=== PATIENT | male | born 1965 | race Caucasian/White ===

== ENCOUNTER 2017-10-24 06:50 | Inpatient (IN) | payer OTHER ==
[2017-10-23 08:39] VITALS: BMI 36.6
[~2017-10-24 06:50] MED LIST: ceFAZolin SODIUM 1 GM VIAL IVPB ONE
[2017-10-24 07:30] LABS: INR 1.04 (0.82-1.09); PROTHROMBIN TIME (PATIENT) 11.8 SEC (9.7-13.0)
[2017-10-24] MEDS ORDERED: MIDAZOLAM HCL 2 MG/2 ML SINGLE DOSE VIAL ONE ×2 (08:25)
[2017-10-24] MEDS ORDERED: DEXAMETHASONE SOD PHOSPHATE/PF 10 MG/ML SDV ONE (08:26)
[2017-10-24] MEDS ORDERED: DEXAMETHASONE SOD PHOSPHATE 4 MG/1 ML VIAL ONE (08:32)
[2017-10-24] MEDS ORDERED: LIDOCAINE HCL/PF 2% SDV 5ML VIAL ONE (08:32)
[2017-10-24] MEDS ORDERED: PROPOFOL 20 ML ONE (08:32)
[2017-10-24] MEDS ORDERED: ceFAZolin SODIUM 1 GM VIAL ONE (08:32)
--- NOTE | 2017-10-24 08:55 | HP ---
Satellite [facility] - Chief Complaint Chief Complaint: right shoulder pain History of Present Illness: right shoulder pain, unstable distal clavicle, possible labral tear History Source: Patient Limitations to Obtaining History: No Limitations - Past Medical History Allergies/Adverse Reactions: Allergies Allergy/AdvReac Type Severity Reaction Status Date / Time No Known Drug Allergies Allergy Verified 10/24/17 07:51 - Current Medications Current Medications: Home Medications Medication Instructions Recorded Aspirin Coated [Ecotrin -] 81 mg PO DAILY 10/23/17 Atorvastatin Ca [Lipitor] 20 mg PO DAILY 10/23/17 Clopidogrel Bisulfate [Plavix] 75 mg PO DAILY 10/23/17 HYDROmorphone [Dilaudid -] 4 mg PO Q4H 10/23/17 Metoprolol Succinate 100 mg PO DAILY 10/23/17 Montelukast Sodium [Singulair] 10 mg PO DAILY 10/23/17 Omeprazole 20 mg PO DAILY 10/23/17 Oxycodone HCl/Acetaminophen 1 each PO PRN PRN 10/23/17 [Percocet 10-325 mg Tablet] Ramipril [Altace] 5 mg PO DAILY 10/23/17 Sertraline HCl [Zoloft -] 50 mg PO BID 10/23/17 Warfarin Sodium [Coumadin] 5 mg PO DAILY 10/23/17 clonazePAM [Klonopin -] 0.5 mg PO DAILY 10/23/17 Satellite Physical Exam - Physical Examination Vital Signs: Vital Signs Period Temp Pulse Resp BP Sys/Torres Pulse Ox Last 24 Hr 98.8 F 69 20 114/69 96 General Appearance: Well Nourished ENT: Clear Lung: Clear to auscultation Heart: Regular rate & rhythm Breasts: Soft Abdomen: Soft Extremities: No edema Satellite Impression/Plan - Impression/Plan Impression: right shoulder pain, unstable distal clavicle Operative Procedure: right shoulder arthroscopy, open coracoclavicular ligament reconstruction Date to be Performed: 10/24/17
[2017-10-24] MEDS ORDERED: ceFAZolin SODIUM 1 GM VIAL IVPB ONE (09:30)
[2017-10-24] MEDS ORDERED: ePHEDrine SULFATE 50 MG/1 ML AMPULE ONE ×2 (10:00→10:19)
--- NOTE | 2017-10-24 12:00 | OP ---
Operative Note - Note: Operative Date: 10/24/17 Pre-Operative Diagnosis: right shoulder impingement, distal clavicle instability Operation: right shoulder arthroscopy, subacromial decompression, open CC ( coracoclavicular ligament) reconstruction Implants: Athrex Fiber Tape x 2 , Dog Bone endobutton, cadaveric anterior tibialis graft, fiber wire x 2 Surgeon: Albert Vee Recreational Resort Manager: Reyes Forman Andrew) Anesthesiologist/TEXTILE BAG SEWER: Catrachita Ruelas Anesthesia: General, Local Specimens Removed: shavings Estimated Blood Loss (mls): 75 Drains, Volume Out (mls): 0 Blood Volume Replaced (mls): 0 Fluid Volume Replaced (mls): 1,200 Operative Report Dictated: Yes
--- NOTE | 2017-10-24 14:49 | OP ---
DATE OF OPERATION: 10/24/2017 PREOPERATIVE DIAGNOSES: Right shoulder distal clavicle instability/acromioclavicular joint separation, recurrent subacromial impingement, possible labral tear. POSTOPERATIVE DIAGNOSES: Right shoulder distal clavicle instability/acromioclavicular joint separation, recurrent subacromial impingement. PROCEDURES PERFORMED: Right shoulder arthroscopy, subacromial decompression, and open coracoclavicular ligament reconstruction. SURGEON: Albert Vee MD BOX CAR LOADER: Reyes Forman MD SECOND BOX CAR LOADER: IESHA Bravo ANESTHESIOLOGIST: ANESTHESIA: Right interscalene block. LMA anesthesia. DRAINS: None. BLOOD LOSS: Minimal; 75 mL. BLOOD GIVEN: None. FLUID REPLACEMENT: 700 mL. SPECIMEN: Arthroscopic shavings. COMPLICATIONS: None. INDICATIONS: This patient is a 52-year-old male with preoperative diagnosis of right shoulder pain and unstable distal clavicle and subacromial impingement. After understanding the potential risks, complications, alternatives and benefits of surgery versus nonsurgical treatment, the patient elected to undergo this procedure. PROCEDURE: The patient was brought to the operating room. Peripheral IV placed. IV sedation given. IV Ancef 2 g was given. A right interscalene block was performed. LMA anesthesia was induced. He was placed into the beach chair position with ample padding throughout including a trailhead construction worker. The right upper extremity was then prepped and draped in sterile fashion. Bony landmarks were marked out with a marking pen. A posterior portal was established. The arthroscope was introduced into the joint and a diagnostic glenohumeral arthroscopy was performed. The patient was seen to have a frayed anterior labrum from the 10 o'clock to the 3 o'clock position. Otherwise, the glenoid and the humerus looked good. The undersurface of the rotator cuff was also frayed. The biceps tendon itself looked good. Therefore, an anterior portal was established with a spinal needle. The Green cannula was introduced into the joint and using the shaver, I was able to shave away the frayed portions of the labrum and the undersurface of the rotator cuff. This revealed that the undersurface rotator cuff tear was extremely small, perhaps 5% of the thickness of the rotator cuff. The labrum was then extensively probed. It was seen to look quite good. There was some fraying in the 12 o'clock to 2 o'clock position, but it was mild. All of the excess saline was removed. The instrumentation was removed from the glenohumeral joint and reintroduced into the subacromial space. Under direct visualization, a lateral portal was established with a spinal needle. The patient had a tremendous amount of inflammatory bursitis. The Green cannula was introduced into the subacromial space. Using the ArthroCare wand and straight shaver, extensive debridement/subacromial soft tissue bursectomy and decompression was performed. This revealed a [id number] subacromial bony spur. Photographs were taken. The bone spur was taken down with a 5.5-mm oval bur and fine tuned in reverse and then with the shaver. Photographs were taken after, as well. The top surface of the rotator cuff was directly visualized and seen to be intact. I could see the AC joint and the distal clavicle instability as it pushed down the clavicle under direct visualization from the subacromial space. Next, we abandoned the arthroscopic approach and turned to the open approach for the open coracoclavicular ligament reconstruction portion of the procedure. An incision was marked out and made with a number-15 scalpel blade from the superior portion of the distal clavicle about 3 cm in from the tip down to the coracoid. Subcutaneous hemostasis was achieved with the Bovie cautery. Dissection done with the Metzenbaum scissors through the superficial fascia. A Weitlaner and then a Idalia retractor was placed into the wound. Next, I used the Bovie cautery to cut through the trapezial fascia on the anterior edge of the clavicle and did a subperiosteal dissection with the periosteal elevator and the Bovie cautery, exposing the entire distal clavicle, but leaving the posterior attachment of the trapezial fascia intact. I then took off the deltopectoral fascia anteriorly, exposing the anterior aspect of the distal clavicle. Next, 0 Vicryl marking and retracting sutures were placed into the fascia both superior and inferior to the clavicle. I then used a rongeur to remove soft tissue debris/scar tissue in the acromioclavicular joint. I was then able to mobilize the distal clavicle and push it down into a more reduced position. Then, I exposed the coracoid, being very careful of all inferior neurovascular structures. I was able to get around the coracoid and then using the Arthrex coracoid suture passer, I was able to thread a nitinol wire underneath the coracoid, leaving the conjoined tendons intact. On the back table, we had prepared a tibialis anterior cadaveric graft in a whipstitch fashion on both ends. We then passed two ends of FiberTape plus the two tails on one side of the tendon graft underneath the coracoid via the nitinol wire and brought it up to the clavicle. These were retracted for protection. Next, we used the Arthrex 3.0-mm drill and drilled down from the top portion of the clavicle. Great care was taken to protect all soft tissue structures. Next, using the nitinol wire again, we brought the four tails of the FiberTape up through the hole in the clavicle, fed it through an Arthrex Dog Bone EndoButton. Pushed the EndoButton down to the top of the clavicle. Reduced the clavicle with direct force. Got the slack out of the FiberTape and tied over the top of the Dog Bone, first [id number], then [id number], and then one insurance stitch to each other, and the tails were cut. This held the distal clavicle in a reduced position. Next, I was able to feed the coracoid suture passer around the clavicle and I fed the more medial aspect of the tibialis anterior graft around the posterior aspect of the clavicle and the more lateral aspect of the cadaveric graft was also more anterior and lateral on the clavicle. I was then able to tie it to itself on the top portion of the clavicle and use multiple FiberWire sutures to suture this in place. This CC reconstruction cadaveric graft also held down the distal clavicle and was over the Dog Bone EndoButton. The excess tails were cut. Excess cadaveric graft was cut. I was able to then close the fascia with 0 Vicryl suture over the construct and the distal clavicle. I then closed the more superficial fascia above this layer with a 0 Vicryl suture and final skin reapproximation was done with a running subcuticular 3-0 V-Loc suture. The arthroscopy portals were closed with 3-0 nylon. The incision was covered with SwiftSet skin glue. All three areas were covered with Aquacel dressing and a shoulder immobilizer was placed. Total operative time was about 1.5 hours. There were no complications during the case. The patient tolerated the procedure quite well. The patient was extubated and bought to the ambulatory recovery room in stable condition. Moody CASON/[id number]
[2017-10-24] MEDS ORDERED: NITROGLYCERIN SUBLINGUAL 1/150 0.4 MG TAB SL ONE ×2 (15:00→15:10)
[2017-10-24] MEDS ORDERED: ONDANSETRON 4 MG/2 ML VIAL IVPUSH PRN (15:02)
[2017-10-24] MEDS ORDERED: NITROGLYCERIN SUBLINGUAL 1/150 0.4 MG TAB SL PRN (15:04)
[2017-10-24] MEDS ORDERED: ASPIRIN 81 MG CHEWABLE TABLETS PO ONE ×2 (15:04→15:10)
--- NOTE | 2017-10-24 16:10 | CON.CARD ---
Consult Consult Specialty:: Cardiology Reason for Consultation:: chest pain radiating to the l arm post op - History of Present Illness History of Present Illness: 52 yo man who developed CP after right shoulder surgery. 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 Medical records are not available. ASHD - mi/"dammaged heart" multiple stents Lupus anticoagulant hlp htn patient stopped his coumadin and DAPT 10 days - History Source History Provided By: Patient, Medical Record - Past Medical History Cardio/Vascular: Yes: CAD, HTN, Hyperlipdemia - Alcohol/Substance Use Hx Alcohol Use: No - Smoking History Smoking history: Current every day smoker Have you smoked in the past 12 months: Yes Aproximately how many cigarettes per day: 20 Home Medications - Allergies Allergies/Adverse Reactions: Allergies Allergy/AdvReac Type Severity Reaction Status Date / Time No Known Drug Allergies Allergy Verified 10/24/17 07:51 - Home Medications Home Medications: Ambulatory Orders Aspirin Coated [Ecotrin -] 81 mg PO DAILY 10/23/17 Atorvastatin Ca [Lipitor] 20 mg PO DAILY 10/23/17 Clopidogrel Bisulfate [Plavix] 75 mg PO DAILY 10/23/17 HYDROmorphone [Dilaudid -] 4 mg PO Q4H 10/23/17 Metoprolol Succinate 100 mg PO DAILY 10/23/17 Montelukast Sodium [Singulair] 10 mg PO DAILY 10/23/17 Omeprazole 20 mg PO DAILY 10/23/17 Oxycodone HCl/Acetaminophen [Percocet 10-325 mg Tablet] 1 each PO PRN PRN Ramipril [Altace] 5 mg PO DAILY 10/23/17 Sertraline HCl [Zoloft -] 50 mg PO BID 10/23/17 Warfarin Sodium [Coumadin] 5 mg PO DAILY 10/23/17 clonazePAM [Klonopin -] 0.5 mg PO DAILY 10/23/17 Review of Systems - Review of Systems Constitutional: reports: No Symptoms Eyes: reports: No Symptoms HENT: reports: No Symptoms Neck: reports: No Symptoms Cardiovascular: reports: Chest Pain Gastrointestinal: reports: No Symptoms Genitourinary: reports: No Symptoms Breasts: reports: No Symptoms Reported Musculoskeletal: reports: No Symptoms Integumentary: reports: No Symptoms Neurological: reports: No Symptoms Endocrine: reports: No Symptoms Hematology/Lymphatic: reports: No Symptoms Psychiatric: reports: No Symptoms Vital Signs: Vital Signs Temperature 98.3 F 10/24/17 13:40 Pulse Rate 82 10/24/17 15:45 Respiratory Rate 16 10/24/17 15:45 Blood Pressure 108/60 10/24/17 15:45 O2 Sat by Pulse Oximetry (%) 95 10/24/17 15:45 Constitutional: Yes: Well Nourished, No Distress, Calm Eyes: Yes: WNL, Conjunctiva Clear, EOM Intact HENT: Yes: WNL, Atraumatic, Normocephalic Neck: Yes: WNL, Supple, Trachea Midline Respiratory: Yes: WNL, Regular, CTA Bilaterally Gastrointestinal: Yes: WNL, Normal Bowel Sounds Renal/: Yes: WNL Cardiovascular: Yes: WNL, Regular Rate and Rhythm Musculoskeletal: Yes: WNL Extremities: Yes: WNL Integumentary: Yes: WNL Neurological: Yes: WNL, Alert, Oriented ...Motor Strength: WNL Psychiatric: Yes: WNL, Alert, Oriented - Other Data Labs, Other Data: INR, PTT INR 1.04 (0.82-1.09) 10/24/17 06:58 Laboratory Tests 10/24/17 06:58 PT with INR 11.80 INR 1.04 Imaging - Results EKG: Image Reviewed (sr old ant septal mi rep abn) Assessment/Plan angina s/p r shoulder surgery ASHD - mi/"damaged heart" multiple stents Lupus anticoagulant hlp htn Plan telemetry r/o mi- serial CE/ekg's echo old records from patient private cardiologists restart DAPT MEÑO IV or SQ unfractionated heparine MEÑO when cleared from ortho point of view restart all other meds including metoprolol will f/u
[2017-10-24] MEDS ORDERED: HEPARIN INFUSION - 25,000 UNITS/500 ML INFUS.BAG IVPB ONE (16:21)
[2017-10-24 17:32] LABS: ALBUMIN 2.9 g/dl (3.4-5.0); ALK PHOS 79 U/L (45-117); ANION GAP 10 (8-16); BILIRUBIN,TOTAL 0.3 mg/dL (0.2-1.0); BLOOD UREA NITROGEN 12 mg/dL (7-18); CHLORIDE 104 mmol/L (98-107); CO2 22 mmol/L (21-32); GLUCOSE,RANDOM 270 mg/dL (74-106); POTASSIUM 4.3 mmol/L (3.5-5.1); SGOT/AST 96 U/L (15-37); SGPT/ALT 75 U/L (12-78); SODIUM 136 mmol/L (136-145); TOT PROT 5.9 g/dl (6.4-8.2)
[2017-10-24] MEDS ORDERED: WARFARIN NA 7.5 MG TABLET (FP) PO ONE (18:00)
[2017-10-24] MEDS: LACTATED RINGERS SOLUTION 1,000 ML IV SCH (18:10)
[2017-10-24] MEDS: CLOPIDOGREL BISULFATE 75 MG TABLET (FP) PO SCH (18:15)
--- NOTE | 2017-10-24 20:29 | CONSULT ---
Consultation: REQUESTING PROVIDER: Dr. Forman CONSULT REQUEST: We have been asked to medically evaluate this patient for ( specify) chesr pain, hospitalist service. HISTORY OF PRESENT ILLNESS: Patient is a 52 year old male with a significant past medical history of arterosclerotic heart disease with multiple cardiac stents, lupus anticoagulant , hyperlipidemia and hypertension. He is s/p right shoulder shoulder today and developed midsternal chest pain that radiates to left arm post operatively. Patient is on Coumadin and Plavix, which have been stopped x 10 days prior to surgery. After developing chest pain, cardiology was consulted, and patient was transferred to inpatient telemonitoring. His initial troponin was negative. On exam, he was sitting up eating dinner, in no acute distress. Still having midsternal chest pain, but states it has improved and no longer radiating to left arm. REVIEW OF SYSTEMS: CONSTITUTIONAL: Absent: fever, chills, diaphoresis, generalized weakness, malaise, loss of appetite, weight change HEENT: Absent: rhinorrhea, nasal congestion, throat pain, throat swelling, difficulty swallowing, mouth swelling, ear pain, eye pain, visual changes CARDIOVASCULAR: Absent: syncope, palpitations, irregular heart rate, lightheadedness, peripheral edema RESPIRATORY: Absent: cough, shortness of breath, dyspnea with exertion, orthopnea, wheezing, stridor, hemoptysis GASTROINTESTINAL: Absent: abdominal pain, abdominal distension, nausea, vomiting, diarrhea, constipation, melena, hematochezia GENITOURINARY: Absent: dysuria, frequency, urgency, hesitancy, hematuria, flank pain, genital pain MUSCULOSKELETAL: Absent: myalgia, arthralgia, joint swelling, back pain, neck pain SKIN: Absent: rash, itching, pallor HEMATOLOGIC/IMMUNOLOGIC: Absent: easy bleeding, easy bruising, lymphadenopathy, frequent infections ENDOCRINE: Absent: unexplained weight gain, unexplained weight loss, heat intolerance, cold intolerance NEUROLOGIC: Absent: headache, focal weakness or paresthesias, dizziness, unsteady gait, seizure, mental status changes, bladder or bowel incontinence PSYCHIATRIC: Absent: anxiety, depression, suicidal or homicidal ideation, hallucinations. PHYSICAL EXAMINATION Vital Signs - 24 hr 10/24/17 10/24/17 10/24/17 07:46 07:50 12:15 Temperature 98.8 F 99.2 F Pulse Rate 69 86 Respiratory 20 16 Rate Blood Pressure 114/69 121/74 O2 Sat by Pulse 96 95 Oximetry (%) 10/24/17 10/24/17 10/24/17 12:30 12:45 13:00 Temperature Pulse Rate 80 80 80 Respiratory 16 16 16 Rate Blood Pressure 107/67 112/63 106/60 O2 Sat by Pulse 96 96 93 L Oximetry (%) 10/24/17 10/24/17 10/24/17 13:15 13:30 13:40 Temperature 98.2 F 98.3 F Pulse Rate 82 84 81 Respiratory 16 16 18 Rate Blood Pressure 104/52 110/60 109/70 O2 Sat by Pulse 93 L 93 L 95 Oximetry (%) 10/24/17 10/24/17 10/24/17 14:25 14:30 14:45 Temperature Pulse Rate 80 80 82 Respiratory 20 16 16 Rate Blood Pressure 121/67 118/64 110/60 O2 Sat by Pulse 95 98 96 Oximetry (%) 10/24/17 10/24/17 10/24/17 15:00 15:15 15:30 Temperature Pulse Rate 84 80 80 Respiratory 16 16 16 Rate Blood Pressure 108/58 109/60 108/64 O2 Sat by Pulse 96 95 95 Oximetry (%) 10/24/17 10/24/17 10/24/17 15:45 16:00 16:15 Temperature Pulse Rate 82 78 78 Respiratory 16 16 16 Rate Blood Pressure 108/60 125/64 108/60 O2 Sat by Pulse 95 96 96 Oximetry (%) 10/24/17 10/24/17 10/24/17 16:30 16:45 17:00 Temperature Pulse Rate 80 84 82 Respiratory 16 16 16 Rate Blood Pressure 111/61 O2 Sat by Pulse 96 96 96 Oximetry (%) 10/24/17 10/24/17 10/24/17 17:15 17:30 18:06 Temperature 98.0 F 98.1 F Pulse Rate 82 80 81 Respiratory 16 16 18 Rate Blood Pressure 112/60 112/60 115/63 O2 Sat by Pulse 96 Oximetry (%) GENERAL: Awake, alert, and fully oriented, in no acute distress. HEAD: Normal with no signs of trauma. EYES: Pupils equal, round and reactive to light, extraocular movements intact, sclera anicteric, conjunctiva clear. No lid lag. EARS, NOSE, THROAT: Ears normal, nares patent, oropharynx clear without exudates. Moist mucous membranes. NECK: Normal range of motion, supple without lymphadenopathy, JVD, or masses. LUNGS: Breath sounds equal, clear to auscultation bilaterally. No wheezes, and no crackles. No accessory muscle use. HEART: Regular rate and rhythm ABDOMEN: Soft, nontender, not distended, normoactive bowel sounds, no guarding, no rebound, no masses. No hepatomegaly or splenomegaly. MUSCULOSKELETAL: s/p right arm surgical repair NEUROLOGICAL: Cranial nerves II-XII intact. Normal speech. Normal gait. PSYCHIATRIC: Cooperative. Good eye contact. Appropriate mood and affect. SKIN: Warm, dry, normal turgor, no rashes or lesions noted. Laboratory Results - last 24 hr 10/24/17 10/24/17 10/24/17 06:58 15:45 16:00 PT with INR 11.80 INR 1.04 Sodium 136 Potassium 4.3 Chloride 104 Carbon Dioxide 22 Anion Gap 10 BUN 12 Creatinine 1.0 Creat Clearance w eGFR > 60 Random Glucose 270 H Calcium 8.0 L Total Bilirubin 0.3 AST 96 H ALT 75 Alkaline Phosphatase 79 Creatine Kinase 163 Creatine Kinase Index 1.1 CK-MB (CK-2) 1.809 Troponin I < 0.02 Total Protein 5.9 L Albumin 2.9 L Active Medications Generic Name Dose Route Start Last Admin Trade Name Freq PRN Reason Stop Dose Admin Aspirin 81 mg 10/25/17 10:00 Ecotrin - PO DAILY [facility] Clopidogrel Bisulfate 75 mg 10/24/17 17:45 10/24/17 18:15 Plavix - PO 75 mg DAILY [facility] Administration Enoxaparin Sodium 120 mg 10/24/17 22:00 Lovenox - SQ BID [facility] Fentanyl 50 mcg 10/24/17 15:02 Sublimaze Injection - IVPUSH [id number] PRN PAIN-PACU ORDER X 4 DOSES ONLY Lactated Ringer's 1,000 mls @ 125 mls/hr 10/24/17 15:15 10/24/17 18:10 Lactated Ringers Solution IV Not Given ASDIR [facility] Metoprolol Succinate 100 mg 10/24/17 17:45 10/24/17 18:10 Toprol Xl - PO Not Given DAILY [facility] Nitroglycerin 0.4 mg 10/24/17 15:04 Nitrostat - SL Q5M PRN FOR CHEST PAIN Ondansetron HCl 4 mg 10/24/17 15:02 Zofran Injection IVPUSH Q6H PRN NAUSEA AND/OR VOMITING Oxycodone HCl 5 mg 10/24/17 15:02 Roxicodone - PO Q4H PRN PAIN LEVEL 1-5 ASSESSMENT/PLAN: Patient is a 52 year old male with a significant past medical history of arterosclerotic heart disease with multiple cardiac stents, lupus anticoagulant , hyperlipidemia and hypertension. He is s/p right shoulder shoulder today and developed midsternal chest pain that radiates to left arm post operatively. Patient is on Coumadin and Plavix, which have been stopped x 10 days prior to surgery. After developing chest pain, cardiology was consulted, and patient was transferred to inpatient telemonitoring. His initial troponin was negative. Cardiology: Chest pain Rule out ACS Heart Score 5 Monitor on tele On ASA Lipid panel in a.m. Chest xray ordered Echo ordered Arterosclerotic heart disease with multiple cardiac stents On ASA, Plavix Coumadin INR 1.04 Lovenox BID with bridge to coumadin (goal inr 2-3), inr 1.04 currently Lipid panel in a.m. INR in a.m. Hypertension, controlled On Metoprolol 100mg daily Endocrine: Hyperglycemia with BGM 270 this afternoon Novolog SS based on BGMs Hmga1c in a.m Ortho Right shoulder pain, unstable distal clavicle s/p surgical repair/arthoscopy/ligament reconstruction Pain management F.E.N. Fluids: tolerating PO Electrolytes: monitor daily Nutrition: low salt Prophy: DVT: Lovenox to Coumadin GI: Protonix Disposition: full code Visit type - Emergency Visit Emergency Visit: Yes ED Registration Date: 10/24/17 Care time: The patient presented to the Emergency Department on the above date and was hospitalized for further evaluation of their emergent condition. - New Patient This patient is new to me today: Yes Date on this admission: 10/25/17 - Critical Care Critical Care patient: No
[2017-10-24] MEDS: ENOXAPARIN NA (PORCINE) 120 MG/0.8 ML DISP.SYRIN SQ SCH (21:27)
[2017-10-24] MEDS: oxyCODONE HCL 5 MG TABLET PO PRN (21:32)
[2017-10-24] MEDS: INSULIN SLIDING SCALE (NOVOLOG) 1 VIAL SQ SCH (22:08)
[2017-10-25] MEDS: INSULIN SLIDING SCALE (NOVOLOG) 1 VIAL SQ SCH ×3 (06:10→17:11)
[2017-10-25 07:53] LABS: BASO % 0.2 % (0-2.0); HEMATOCRIT 40.9 % (35.4-49); HEMOGLOBIN 13.8 GM/dL (11.7-16.9); LYMPH % 12.9 % (8-40); MCH 30.2 pg (25.7-33.7); MCHC 33.6 g/dl (32.0-35.9); MEAN CELL VOLUME 89.9 fl (80-96); MEAN PLT VOLUME 9.9 fl (7.5-11.1); MONO % 5.8 % (3.8-10.2); NEUT % 81.1 % (42.8-82.8); PLATELET COUNT 164 K/MM3 (134-434); RBC 4.55 M/mm3 (4.00-5.60); RDW 14.4 % (11.9-15.9); WHITE BLOOD COUNT 12.2 K/mm3 (4.0-10.0)
[2017-10-25 08:09] LABS: CHLORIDE 102 mmol/L (98-107); POTASSIUM 4.2 mmol/L (3.5-5.1); SODIUM 137 mmol/L (136-145)
[2017-10-25 08:19] LABS: INR 1.07 (0.82-1.09); PROTHROMBIN TIME (PATIENT) 12.1 SEC (9.7-13.0)
[2017-10-25 08:38] LABS: ALBUMIN 3.4 g/dl (3.4-5.0); ALK PHOS 92 U/L (45-117); ANION GAP 9 (8-16); BILIRUBIN,TOTAL 0.4 mg/dL (0.2-1.0); BLOOD UREA NITROGEN 16 mg/dL (7-18); CALCIUM 8.6 mg/dL (8.5-10.1); CO2 26 mmol/L (21-32); GLUCOSE,RANDOM 232 mg/dL (74-106); MAGNESIUM 1.7 mg/dL (1.8-2.4); SGOT/AST 70 U/L (15-37); SGPT/ALT 74 U/L (12-78); TOT PROT 7.1 g/dl (6.4-8.2)
[2017-10-25 08:44] LABS: CHOLESTEROL 188 mg/dL (50-200); HDL CHOLESTEROL 45 mg/dL (40-60); TRIGLYCERIDES 217 mg/dL (35-160)
[2017-10-25] MEDS ORDERED: MAGNESIUM OXIDE 400 MG TABLET (FP) PO ONE (09:30)
--- NOTE | 2017-10-25 09:51 | PN ---
Progress Note (short form) - Note Progress Note: Pt seen and examined. He states all his left arm, and back pain from yesterday have gone. He is comfortable. No SOB, no CP, in NAD. He has not started SubQ Lovenox yet, but will this morning. He did restart Plavix and Coumadin. AVSS H/H stable Getting echo now. The RUE block has worn off. RUE looks good, no hematoma, no significant swelling. RUE NVI Excellent ROM right elbow, forearm, wrist, fingers. Overall the pt looks very comfortable. So far, there is no definitive evidence that he had an acute cardiac event. I defer cardiac care to the restaurant crew person. Orthopedically he is stable to go home today, POD #1. He is to f/u in 1 week unless there are any other issues.
[2017-10-25] MEDS: CLOPIDOGREL BISULFATE 75 MG TABLET (FP) PO SCH (10:12)
[2017-10-25] MEDS: ASPIRIN COATED 81 MG TABLET.EC PO SCH (10:12)
[2017-10-25] MEDS: PANTOPRAZOLE 40 MG TABLET (FP) PO SCH (10:12)
[2017-10-25] MEDS: ENOXAPARIN NA (PORCINE) 120 MG/0.8 ML DISP.SYRIN SQ SCH ×2 (10:12→21:35)
[2017-10-25] MEDS: oxyCODONE HCL 5 MG TABLET PO PRN ×2 (11:57→19:54)
--- NOTE | 2017-10-25 12:08 | PN ---
Progress Note, Physician Chief Complaint: Pt A&Ox34; c/o pain at site of right shoulder surgery done yesterday; wants to go home. History of Present Illness: Patient is a 52 year old white male with a significant past medical history of arterosclerotic heart disease with multiple cardiac stents, lupus anticoagulant , hyperlipidemia and hypertension. He is s/p right shoulder shoulder today and developed midsternal chest pain that radiates to left arm post operatively. Patient is on Coumadin and Plavix, which have been stopped x 10 days prior to surgery. After developing chest pain, cardiology was consulted, and patient was transferred to inpatient telemonitoring. His initial troponin was negative. - Current Medication List Current Medications: Active Medications Aspirin (Ecotrin -) 81 mg PO DAILY [facility] Last Admin: 10/25/17 10:12 Dose: 81 mg Clopidogrel Bisulfate (Plavix -) 75 mg PO DAILY [facility] Last Admin: 10/25/17 10:12 Dose: 75 mg Enoxaparin Sodium (Lovenox -) 120 mg SQ BID [facility] Last Admin: 10/25/17 10:12 Dose: 120 mg Fentanyl (Sublimaze Injection -) 50 mcg IVPUSH [id number] PRN PRN Reason: PAIN-PACU ORDER X 4 DOSES ONLY Lactated Ringer's (Lactated Ringers Solution) 1,000 mls @ 125 mls/hr IV ASDIR [facility] Last Admin: 10/24/17 18:10 Dose: Not Given Insulin Aspart (Novolog Vial Sliding Scale -) 1 vial SQ ACHS [facility]; Protocol Last Admin: 10/25/17 11:56 Dose: 4 units Metoprolol Succinate (Toprol Xl -) 100 mg PO DAILY [facility] Last Admin: 10/25/17 10:12 Dose: 100 mg Nitroglycerin (Nitrostat -) 0.4 mg SL Q5M PRN PRN Reason: FOR CHEST PAIN Ondansetron HCl (Zofran Injection) 4 mg IVPUSH Q6H PRN PRN Reason: NAUSEA AND/OR VOMITING Oxycodone HCl (Roxicodone -) 5 mg PO Q4H PRN PRN Reason: PAIN LEVEL 1-5 Last Admin: 10/25/17 11:57 Dose: 5 mg Pantoprazole Sodium (Protonix -) 40 mg PO DAILY [facility] Last Admin: 10/25/17 10:12 Dose: 40 mg - Objective Vital Signs: Vital Signs Temperature 98 F 10/25/17 09:00 Pulse Rate 77 10/25/17 09:00 Respiratory Rate 20 10/25/17 09:00 Blood Pressure 136/73 10/25/17 09:00 O2 Sat by Pulse Oximetry (%) 96 10/24/17 17:15 Constitutional: Yes: Anxious Eyes: Yes: WNL HENT: Yes: WNL Neck: Yes: WNL Cardiovascular: Yes: WNL Respiratory: Yes: WNL Gastrointestinal: Yes: WNL ...Rectal Exam: Yes: Deferred Genitourinary: No: Anuria Breast(s): Yes: WNL Musculoskeletal: Yes: Other (s/p right shoulder surgery) Extremities: Yes: Other (right shoulder surgery;) Edema: No Peripheral Pulses WNL: Yes Integumentary: Yes: Incision Wound/Incision: Yes: Dressing Dry and Intact Neurological: Yes: WNL Psychiatric: Yes: WNL Labs: CBC, BMP 10/25/17 06:00 10/25/17 06:00 INR, PTT INR 1.07 (0.82-1.09) 10/25/17 06:00 Abnormal Lab Results 10/24/17 10/26/17 22:30 05:18 PT with INR 14.70 H INR 1.30 H Creatine Kinase 326 H Problem List - Problems (1) Lupus anticoagulant disorder Assessment/Plan: on dual antiplatelet therapy. On Lovenox until INR 2-3 on warfarin. Code(s): D68.62 - LUPUS ANTICOAGULANT SYNDROME (2) HTN (hypertension) Code(s): I10 - ESSENTIAL (PRIMARY) HYPERTENSION (3) Status post right shoulder hemiarthroplasty Assessment/Plan: POD 1; pain managemetn per surgeon. Code(s): Z96.611 - PRESENCE OF RIGHT ARTIFICIAL SHOULDER JOINT (4) H/O heart artery stent Assessment/Plan: aggtressive lipid control with statin, diet, exercise. On DAPT; on warfarin. Code(s): Z95.5 - PRESENCE OF CORONARY ANGIOPLASTY IMPLANT AND GRAFT (5) Diabetes Assessment/Plan: consider ACEI for renal protection. Code(s): E11.9 - TYPE 2 DIABETES MELLITUS WITHOUT COMPLICATIONS
--- NOTE | 2017-10-25 13:25 | EKG ---
Test Reason : Blood Pressure : / mmHG Vent. Rate : 074 BPM Atrial Rate : 074 BPM P-R Int : 140 ms QRS Dur : 090 ms QT Int : 422 ms P-R-T Axes : 056 010 036 degrees QTc Int : 468 ms SINUS RHYTHM WITH PREMATURE ATRIAL COMPLEXES ANTEROSEPTAL INFARCT (CITED ON OR BEFORE 24-OCT-2017) ABNORMAL ECG WHEN COMPARED WITH ECG OF 24-OCT-2017 14:37, PREMATURE ATRIAL COMPLEXES ARE NOW PRESENT Confirmed by DUARTE WHITE MD ([id number]) on 10/25/2017 1:25:18 PM Referred By: Confirmed By:DUARTE WHITE MD
--- NOTE | 2017-10-25 13:29 | EKG ---
Test Reason : Blood Pressure : / mmHG Vent. Rate : 081 BPM Atrial Rate : 081 BPM P-R Int : 144 ms QRS Dur : 094 ms QT Int : 420 ms P-R-T Axes : 049 018 041 degrees QTc Int : 487 ms NORMAL SINUS RHYTHM ANTEROSEPTAL INFARCT , AGE UNDETERMINED ABNORMAL ECG NO PREVIOUS ECGS AVAILABLE Confirmed by CHRISTOPHER BRISCOE, DUARTE ([id number]) on 10/25/2017 1:28:46 PM Referred By: STEFFANIE HAMILTON Confirmed By:DUARTE WHITE MD
[2017-10-25] MEDS: NICOTINE 21 MG/24 HOURS TOPICAL PATCH TD SCH (13:42)
[2017-10-25] MEDS: clonazePAM 0.5 MG TABLET PO PRN (13:42)
[2017-10-25] MEDS ORDERED: oxyCODONE HCL 5 MG TABLET PO ONE (14:51)
--- NOTE | 2017-10-25 15:59 | PATH ---
Surgical Pathology Report Patient Name: LENNY WATTS [facility]. Rec. #: [id number] /Age/Gender: 1965 (Age: 52) / M Account: [id number] Location: [facility] TELEMETRY U Taken: 10/24/2017 Received: 10/24/2017 Reported: 10/25/2017 Physicians: Reyes Forman M.D. Specimen(s) Received RIGHT SHOULDER SHAVINGS Clinical History Right shoulder acromial clavicular joint instability Final Diagnosis RIGHT SHOULDER, SHAVINGS: FRAGMENTS OF SKELETAL MUSCLE, BONE, AND FIBROCARTILAGINOUS TISSUE WITH DEGENERATIVE CHANGE. Electronically Signed Wesley Mack M.D. Gross Description Received in formalin, labeled "right shoulder shavings," is a 4.0 x 2.3 x 0.3 cm. aggregate of guerrero-yellow soft tissue fragments. A senior human resources representative portion is submitted in one cassette. /10/24/2017 saudi10/24/2017
[2017-10-25] MEDS: LACTATED RINGERS SOLUTION 1,000 ML IV SCH ×2 (17:46→17:50)
[2017-10-25] MEDS ORDERED: WARFARIN NA 10 MG TABLET (FP) PO SCH (18:00)
--- NOTE | 2017-10-25 19:13 | CONSULT ---
Consult Consult Specialty:: Endocrinology Referred by:: Jack Gonzalez Reason for Consultation:: New Onset DM - History of Present Illness Chief Complaint: Chest pain History of Present Illness: This is a 52 year old man with history of arterosclerotic heart disease with multiple cardiac stents, lupus anticoagulant, hyperlipidemia and hypertension, s/p right shoulder shoulder yesterday who developed midsternal chest pain that radiates to left arm post operatively and was admitted. Patient is on Coumadin and Plavix, which have been stopped x 10 days prior to surgery. After developing chest pain, cardiology was consulted, and patient was transferred to inpatient telemonitoring. His initial troponin was negative. Pt also found to be hyperglycemic and treated with Insulin SS. Pt referred for management. Pt denies any polyuria, polydipsia. Has difficulty with distant vision for sometime. Last labs done was for preop evaluation recently. No other labs done for about a year prior to that. No paresthesia of feet. No CP currently. - History Source History Provided By: Patient, Medical Record - Past Medical History Cardio/Vascular: Yes: CAD, HTN, Hyperlipdemia - Alcohol/Substance Use Hx Alcohol Use: No - Smoking History Smoking history: Current every day smoker Have you smoked in the past 12 months: Yes Aproximately how many cigarettes per day: 20 Home Medications - Allergies Allergies/Adverse Reactions: Allergies Allergy/AdvReac Type Severity Reaction Status Date / Time No Known Drug Allergies Allergy Verified 10/24/17 07:51 - Home Medications Home Medications: Ambulatory Orders Aspirin Coated [Ecotrin -] 81 mg PO DAILY 10/23/17 Atorvastatin Ca [Lipitor] 20 mg PO DAILY 10/23/17 Clopidogrel Bisulfate [Plavix] 75 mg PO DAILY 10/23/17 HYDROmorphone [Dilaudid -] 4 mg PO Q4H 10/23/17 Metoprolol Succinate 100 mg PO DAILY 10/23/17 Montelukast Sodium [Singulair] 10 mg PO DAILY 10/23/17 Omeprazole 20 mg PO DAILY 10/23/17 Oxycodone HCl/Acetaminophen [Percocet 10-325 mg Tablet] 1 each PO PRN PRN Ramipril [Altace] 5 mg PO DAILY 10/23/17 Sertraline HCl [Zoloft -] 50 mg PO BID 10/23/17 Warfarin Sodium [Coumadin] 5 mg PO DAILY 10/23/17 clonazePAM [Klonopin -] 0.5 mg PO DAILY 10/23/17 Alcohol Antiseptic Pads [Alcohol Swabs] 1 each TP ACHS #1 box 10/25/17 Blood Sugar Diagnostic [Test Strips] 1 each MC ACHS #1 box 10/25/17 Enoxaparin [Lovenox -] 120 mg SQ BID #10 disp.syrin 10/25/17 Insulin (Novolog 70/30) [Novolog Mix 70/30 Flexpen -] 2 units SQ BIDAC #1 pen Lancets [Lancets Ultra Thin] 1 each ACHS #1 box 10/25/17 Lancets [Lancets Ultra Thin] 1 each ACHS #1 box 10/25/17 Lancets [Lancets Ultra Thin] 1 each ACHS #1 box 10/25/17 Lancets [Lancets Ultra Thin] 1 each ACHS #1 box 10/25/17 Miscellaneous Medical Supply [Glucometer Device] 1 each SQ ASDIR #1 kit [employer]isc[employer] [Glucometer Device] 1 each SQ ASDIR #1 kit [employer] [Glucometer Device] 1 each SQ ASDIR #1 kit [employer] [Glucometer Device] 1 each SQ ASDIR #1 kit [employer] [Glucometer Test Strips #100] 1 each SQ ASDIR #1 box 10/25/17 Miscellaneous Medical Supply [Glucometer Test Strips #100] 1 each SQ ASDIR #1 box 10/25/17 Miscellaneous Medical Supply [Glucometer Test Strips #100] 1 each SQ ASDIR #1 box 10/25/17 Pen Needle, Diabetic, Safety [Healthy Accents Unifine Pentip] 1 each ACHS #1 box 10/25/17 Family Disease History - Family Disease History Family Disease History: Diabetes: Father Review of Systems - Review of Systems Constitutional: reports: No Symptoms Eyes: reports: No Symptoms HENT: reports: Gingival Bleeding Neck: reports: No Symptoms Cardiovascular: reports: No Symptoms Respiratory: reports: No Symptoms Gastrointestinal: reports: No Symptoms Genitourinary: reports: No Symptoms Neurological: reports: Other (Rt shoulder pain) Endocrine: reports: No Symptoms Hematology/Lymphatic: reports: No Symptoms Physical Exam Vital Signs: Vital Signs Temperature 98.1 F 10/25/17 17:00 Pulse Rate 71 10/25/17 17:00 Respiratory Rate 20 10/25/17 17:00 Blood Pressure 134/81 10/25/17 17:00 O2 Sat by Pulse Oximetry (%) 96 10/24/17 17:15 Constitutional: Yes: No Distress, Calm Eyes: Yes: Conjunctiva Clear, EOM Intact HENT: Yes: Atraumatic, Normocephalic Neck: Yes: Supple, Trachea Midline Cardiovascular: Yes: Regular Rate and Rhythm Respiratory: Yes: Regular, CTA Bilaterally Gastrointestinal: Yes: Normal Bowel Sounds, Soft Edema: No Neurological: Yes: Alert, Oriented Labs: CBC, BMP 10/25/17 06:00 10/25/17 06:00 Assessment/Plan AP: A/P Rt shoulder surgery New Onset DM Lupus anticoagulant ASHD Diet exercise discussed No Juice and regular sodas Start Levemir 15 units daily at HS Novolog SS coverage Teach pt to self monitor blood sugar and self injection of Insulin Nutrition consult Will F/u
--- NOTE | 2017-10-25 19:43 | HP ---
CHIEF COMPLAINT: PCP: HISTORY OF PRESENT ILLNESS: ER course was notable for: (1) (2) (3) Recent Travel: PAST MEDICAL HISTORY: PAST SURGICAL HISTORY: Social History: Smoking: Alcohol: Drugs: Family History: Allergies No Known Drug Allergies Allergy (Verified 10/24/17 07:51) HOME MEDICATIONS: Home Medications Medication Instructions Recorded Aspirin Coated [Ecotrin -] 81 mg PO DAILY 10/23/17 Atorvastatin Ca [Lipitor] 20 mg PO DAILY 10/23/17 Clopidogrel Bisulfate [Plavix] 75 mg PO DAILY 10/23/17 HYDROmorphone [Dilaudid -] 4 mg PO Q4H 10/23/17 Metoprolol Succinate 100 mg PO DAILY 10/23/17 Montelukast Sodium [Singulair] 10 mg PO DAILY 10/23/17 Omeprazole 20 mg PO DAILY 10/23/17 Oxycodone HCl/Acetaminophen 1 each PO PRN PRN 10/23/17 [Percocet 10-325 mg Tablet] Ramipril [Altace] 5 mg PO DAILY 10/23/17 Sertraline HCl [Zoloft -] 50 mg PO BID 10/23/17 Warfarin Sodium [Coumadin] 5 mg PO DAILY 10/23/17 clonazePAM [Klonopin -] 0.5 mg PO DAILY 10/23/17 Alcohol Antiseptic Pads [Alcohol 1 each ACHS #1 box 10/25/17 Swabs] Blood Sugar Diagnostic [Test 1 each MC ACHS #1 box 10/25/17 Strips] Enoxaparin [Lovenox -] 120 mg SQ BID #10 disp.syrin 10/25/17 Insulin (Novolog 70/30) [Novolog 2 units SQ BIDAC #1 pen 10/25/17 Mix 70/30 Flexpen -] Lancets [Lancets Ultra Thin] 1 each ACHS #1 box 10/25/17 Lancets [Lancets Ultra Thin] 1 each ACHS #1 box 10/25/17 Lancets [Lancets Ultra Thin] 1 each ACHS #1 box 10/25/17 Lancets [Lancets Ultra Thin] 1 each ACHS #1 box 10/25/17 Miscellaneous Medical Supply 1 each SQ ASDIR #1 kit 10/25/17 [Glucometer Device] Miscellaneous Medical Supply 1 each SQ ASDIR #1 kit 10/25/17 [Glucometer Device] Miscellaneous Medical Supply 1 each SQ ASDIR #1 kit 10/25/17 [Glucometer Device] Miscellaneous Medical Supply 1 each SQ ASDIR #1 kit 10/25/17 [Glucometer Device] Miscellaneous Medical Supply 1 each SQ ASDIR #1 box 10/25/17 [Glucometer Test Strips #100] Miscellaneous Medical Supply 1 each SQ ASDIR #1 box 10/25/17 [Glucometer Test Strips #100] Miscellaneous Medical Supply 1 each SQ ASDIR #1 box 10/25/17 [Glucometer Test Strips #100] Pen Needle, Diabetic, Safety 1 each ACHS #1 box 10/25/17 [Healthy Accents Unifine Pentip] REVIEW OF SYSTEMS CONSTITUTIONAL: Absent: fever, chills, diaphoresis, generalized weakness, malaise, loss of appetite, weight change HEENT: Absent: rhinorrhea, nasal congestion, throat pain, throat swelling, difficulty swallowing, mouth swelling, ear pain, eye pain, visual changes CARDIOVASCULAR: Absent: chest pain, syncope, palpitations, irregular heart rate, lightheadedness , peripheral edema RESPIRATORY: Absent: cough, shortness of breath, dyspnea with exertion, orthopnea, wheezing, stridor, hemoptysis GASTROINTESTINAL: Absent: abdominal pain, abdominal distension, nausea, vomiting, diarrhea, constipation, melena, hematochezia GENITOURINARY: Absent: dysuria, frequency, urgency, hesitancy, hematuria, flank pain, genital pain MUSCULOSKELETAL: Absent: myalgia, arthralgia, joint swelling, back pain, neck pain SKIN: Absent: rash, itching, pallor HEMATOLOGIC/IMMUNOLOGIC: Absent: easy bleeding, easy bruising, lymphadenopathy, frequent infections ENDOCRINE: Absent: unexplained weight gain, unexplained weight loss, heat intolerance, cold intolerance NEUROLOGIC: Absent: headache, focal weakness or paresthesias, dizziness, unsteady gait, seizure, mental status changes, bladder or bowel incontinence PSYCHIATRIC: Absent: anxiety, depression, suicidal or homicidal ideation, hallucinations. PHYSICAL EXAMINATION Vital Signs - 24 hr 10/24/17 10/25/17 10/25/17 21:03 02:35 09:00 Temperature 98.2 F 98.8 F 98 F Pulse Rate 88 85 77 Respiratory 20 20 20 Rate Blood Pressure 140/74 117/73 136/73 10/25/17 10/25/17 14:02 17:00 Temperature 98.2 F 98.1 F Pulse Rate 73 71 Respiratory 20 20 Rate Blood Pressure 144/63 134/81 GENERAL: Awake, alert, and fully oriented, in no acute distress. HEAD: Normal with no signs of trauma. EYES: Pupils equal, round and reactive to light, extraocular movements intact, sclera anicteric, conjunctiva clear. No lid lag. EARS, NOSE, THROAT: Ears normal, nares patent, oropharynx clear without exudates. Moist mucous membranes. NECK: Normal range of motion, supple without lymphadenopathy, JVD, or masses. LUNGS: Breath sounds equal, clear to auscultation bilaterally. No wheezes, and no crackles. No accessory muscle use. HEART: Regular rate and rhythm, normal S1 and S2 without murmur, rub or gallop. ABDOMEN: Soft, nontender, not distended, normoactive bowel sounds, no guarding, no rebound, no masses. No hepatomegaly or splenomegaly. MUSCULOSKELETAL: Normal range of motion at all joints. No bony deformities or tenderness. No CVA tenderness. UPPER EXTREMITIES: 2+ pulses, warm, well-perfused. No cyanosis. No clubbing. No peripheral edema. LOWER EXTREMITIES: 2+ pulses, warm, well-perfused. No calf tenderness. No peripheral edema. NEUROLOGICAL: Cranial nerves II-XII intact. Normal speech. Normal gait. PSYCHIATRIC: Cooperative. Good eye contact. Appropriate mood and affect. SKIN: Warm, dry, normal turgor, no rashes or lesions noted, normal capillary refill. Laboratory Results - last 24 hr 10/24/17 10/24/17 10/25/17 22:00 22:30 05:47 WBC RBC Hgb Hct MCV MCH MCHC RDW Plt Count MPV Neutrophils % Lymphocytes % Monocytes % Eosinophils % Basophils % Nucleated RBC % PT with INR INR Sodium Potassium Chloride Carbon Dioxide Anion Gap BUN Creatinine Creat Clearance w eGFR POC Glucometer 362 254 Random Glucose Hemoglobin A1c % Calcium Magnesium Total Bilirubin AST ALT Alkaline Phosphatase Creatine Kinase 326 H Creatine Kinase Index 0.4 CK-MB (CK-2) 1.584 Troponin I < 0.02 Total Protein Albumin Triglycerides Cholesterol Total LDL Cholesterol HDL Cholesterol 10/25/17 10/25/17 10/25/17 06:00 06:00 06:00 WBC 12.2 H RBC 4.55 Hgb 13.8 Hct 40.9 MCV 89.9 MCH 30.2 MCHC 33.6 RDW 14.4 Plt Count 164 MPV 9.9 Neutrophils % 81.1 Lymphocytes % 12.9 Monocytes % 5.8 Eosinophils % 0.0 Basophils % 0.2 Nucleated RBC % 0 PT with INR INR Sodium 137 Potassium 4.2 Chloride 102 Carbon Dioxide 26 Anion Gap 9 BUN 16 D Creatinine 1.0 Creat Clearance w eGFR > 60 POC Glucometer Random Glucose 232 H Hemoglobin A1c % Calcium 8.6 Magnesium 1.7 L Total Bilirubin 0.4 D AST 70 H D ALT 74 Alkaline Phosphatase 92 Creatine Kinase 352 H Creatine Kinase Index 0.9 CK-MB (CK-2) 3.42 Troponin I < 0.02 Total Protein 7.1 D Albumin 3.4 Triglycerides 217 H Cholesterol 188 Total LDL Cholesterol 119 H HDL Cholesterol 45 10/25/17 10/25/17 10/25/17 06:00 06:00 11:39 WBC RBC Hgb Hct MCV MCH MCHC RDW Plt Count MPV Neutrophils % Lymphocytes % Monocytes % Eosinophils % Basophils % Nucleated RBC % PT with INR 12.10 INR 1.07 Sodium Potassium Chloride Carbon Dioxide Anion Gap BUN Creatinine Creat Clearance w eGFR POC Glucometer 249 Random Glucose Hemoglobin A1c % 8.7 H Calcium Magnesium Total Bilirubin AST ALT Alkaline Phosphatase Creatine Kinase Creatine Kinase Index CK-MB (CK-2) Troponin I Total Protein Albumin Triglycerides Cholesterol Total LDL Cholesterol HDL Cholesterol 10/25/17 16:21 WBC RBC Hgb Hct MCV MCH MCHC RDW Plt Count MPV Neutrophils % Lymphocytes % Monocytes % Eosinophils % Basophils % Nucleated RBC % PT with INR INR Sodium Potassium Chloride Carbon Dioxide Anion Gap BUN Creatinine Creat Clearance w eGFR POC Glucometer 319 Random Glucose Hemoglobin A1c % Calcium Magnesium Total Bilirubin AST ALT Alkaline Phosphatase Creatine Kinase Creatine Kinase Index CK-MB (CK-2) Troponin I Total Protein Albumin Triglycerides Cholesterol Total LDL Cholesterol HDL Cholesterol ASSESSMENT/PLAN: Hospitalist Screening - Colonoscopy Questionnaire Colonoscopy Questionnaire: Colonoscopy Questionnaire
--- NOTE | 2017-10-25 20:39 | PN ---
Physical Exam: SUBJECTIVE: Patient seen and examined at the bedside. Patient wants to go home but willing to stay until tomorrow. Explained that I would like to keep him one more night so that I can increase his Coumadin and bump up his INR. If it does not increase appropriately, he will need to inject himself with Lovenox which he states he has done in the past. Also, informed him that his hmga1c was 8.7% and he will need insulin. He is willing to self inject and the RNs are teaching him currently. I called all his meds into his pharmacy. OBJECTIVE: Multiple risk factors, and now with newly diagnosed diabetes Patient denies that he has ever been told he was a diabetic I made a follow up appointment with his primary doctor for a follow up INR. He would benefit with [facility] for ongoing teaching of insulin and Lovenox Vital Signs Period Temp Pulse Resp BP Sys/Torres Pulse Ox Last 24 Hr 98 F-98.8 F 71-88 20-20 117-144/63-81 GENERAL: Awake, alert, and fully oriented, in no acute distress. HEAD: Normal with no signs of trauma. EYES: Pupils equal, round and reactive to light, extraocular movements intact, sclera anicteric, conjunctiva clear. No lid lag. EARS, NOSE, THROAT: Ears normal, nares patent, oropharynx clear without exudates. Moist mucous membranes. NECK: Normal range of motion, supple without lymphadenopathy, JVD, or masses. LUNGS: Breath sounds equal, clear to auscultation bilaterally. No wheezes, and no crackles. No accessory muscle use. HEART: Regular rate and rhythm ABDOMEN: Soft, nontender, not distended, normoactive bowel sounds, no guarding, no rebound, no masses. No hepatomegaly or splenomegaly. MUSCULOSKELETAL: s/p right arm surgical repair NEUROLOGICAL: Cranial nerves II-XII intact. Normal speech. Normal gait. PSYCHIATRIC: Cooperative. Good eye contact. Appropriate mood and affect. SKIN: Warm, dry, normal turgor, no rashes or lesions noted. Laboratory Results - last 24 hr 10/24/17 10/24/17 10/25/17 22:00 22:30 05:47 WBC RBC Hgb Hct MCV MCH MCHC RDW Plt Count MPV Neutrophils % Lymphocytes % Monocytes % Eosinophils % Basophils % Nucleated RBC % PT with INR INR Sodium Potassium Chloride Carbon Dioxide Anion Gap BUN Creatinine Creat Clearance w eGFR POC Glucometer 362 254 Random Glucose Hemoglobin A1c % Calcium Magnesium Total Bilirubin AST ALT Alkaline Phosphatase Creatine Kinase 326 H Creatine Kinase Index 0.4 CK-MB (CK-2) 1.584 Troponin I < 0.02 Total Protein Albumin Triglycerides Cholesterol Total LDL Cholesterol HDL Cholesterol 10/25/17 10/25/17 10/25/17 06:00 06:00 06:00 WBC 12.2 H RBC 4.55 Hgb 13.8 Hct 40.9 MCV 89.9 MCH 30.2 MCHC 33.6 RDW 14.4 Plt Count 164 MPV 9.9 Neutrophils % 81.1 Lymphocytes % 12.9 Monocytes % 5.8 Eosinophils % 0.0 Basophils % 0.2 Nucleated RBC % 0 PT with INR INR Sodium 137 Potassium 4.2 Chloride 102 Carbon Dioxide 26 Anion Gap 9 BUN 16 D Creatinine 1.0 Creat Clearance w eGFR > 60 POC Glucometer Random Glucose 232 H Hemoglobin A1c % Calcium 8.6 Magnesium 1.7 L Total Bilirubin 0.4 D AST 70 H D ALT 74 Alkaline Phosphatase 92 Creatine Kinase 352 H Creatine Kinase Index 0.9 CK-MB (CK-2) 3.42 Troponin I < 0.02 Total Protein 7.1 D Albumin 3.4 Triglycerides 217 H Cholesterol 188 Total LDL Cholesterol 119 H HDL Cholesterol 45 10/25/17 10/25/17 10/25/17 06:00 06:00 11:39 WBC RBC Hgb Hct MCV MCH MCHC RDW Plt Count MPV Neutrophils % Lymphocytes % Monocytes % Eosinophils % Basophils % Nucleated RBC % PT with INR 12.10 INR 1.07 Sodium Potassium Chloride Carbon Dioxide Anion Gap BUN Creatinine Creat Clearance w eGFR POC Glucometer 249 Random Glucose Hemoglobin A1c % 8.7 H Calcium Magnesium Total Bilirubin AST ALT Alkaline Phosphatase Creatine Kinase Creatine Kinase Index CK-MB (CK-2) Troponin I Total Protein Albumin Triglycerides Cholesterol Total LDL Cholesterol HDL Cholesterol 10/25/17 16:21 WBC RBC Hgb Hct MCV MCH MCHC RDW Plt Count MPV Neutrophils % Lymphocytes % Monocytes % Eosinophils % Basophils % Nucleated RBC % PT with INR INR Sodium Potassium Chloride Carbon Dioxide Anion Gap BUN Creatinine Creat Clearance w eGFR POC Glucometer 319 Random Glucose Hemoglobin A1c % Calcium Magnesium Total Bilirubin AST ALT Alkaline Phosphatase Creatine Kinase Creatine Kinase Index CK-MB (CK-2) Troponin I Total Protein Albumin Triglycerides Cholesterol Total LDL Cholesterol HDL Cholesterol Active Medications Generic Name Dose Route Start Last Admin Trade Name Freq PRN Reason Stop Dose Admin Aspirin 81 mg 10/25/17 10:00 10/25/17 10:12 Ecotrin - PO 81 mg DAILY [facility] Administration Atorvastatin Calcium 20 mg 10/25/17 22:00 Lipitor - PO HS [facility] Clonazepam 0.5 mg 10/25/17 13:01 10/25/17 13:42 Klonopin - PO 0.5 mg TID PRN Administration ANXIETY Clopidogrel Bisulfate 75 mg 10/24/17 17:45 10/25/17 10:12 Plavix - PO 75 mg DAILY [facility] Administration Enoxaparin Sodium 120 mg 10/24/17 22:00 10/25/17 10:12 Lovenox - SQ 120 mg BID [facility] Administration Fentanyl 50 mcg 10/24/17 15:02 Sublimaze Injection - IVPUSH [id number] PRN PAIN-PACU ORDER X 4 DOSES ONLY Lactated Ringer's 1,000 mls @ 125 mls/hr 10/24/17 15:15 10/25/17 17:50 Lactated Ringers Solution IV Not Given ASDIR [facility] Insulin Aspart 1 vial 10/25/17 22:00 Novolog Vial Sliding Scale - SQ HS [facility] Protocol Insulin Aspart 1 vial 10/26/17 07:00 Novolog Vial Sliding Scale - SQ TIDAC [facility] Protocol Insulin Detemir 15 units 10/25/17 22:00 Levemir Vial SQ HS [facility] Metoprolol Succinate 100 mg 10/24/17 17:45 10/25/17 10:12 Toprol Xl - PO 100 mg DAILY [facility] Administration Nicotine 21 mg 10/25/17 13:15 10/25/17 13:42 Nicoderm Patch - TD 21 mg DAILY [facility] Administration Nitroglycerin 0.4 mg 10/24/17 15:04 Nitrostat - SL Q5M PRN FOR CHEST PAIN Ondansetron HCl 4 mg 10/24/17 15:02 Zofran Injection IVPUSH Q6H PRN NAUSEA AND/OR VOMITING Oxycodone HCl 10 mg 10/25/17 14:52 10/25/17 19:54 Roxicodone - PO 10 mg Q6H PRN Administration PAIN LEVEL 6-10 Pantoprazole Sodium 40 mg 10/25/17 10:00 10/25/17 10:12 Protonix - PO 40 mg DAILY [facility] Administration Warfarin Sodium 10 mg 10/25/17 18:00 10/25/17 17:46 Coumadin - PO 10 mg DAILY@1800 [facility] Administration ASSESSMENT/PLAN: Patient is a 52 year old male with a significant past medical history of arterosclerotic heart disease with multiple cardiac stents, lupus anticoagulant , hyperlipidemia and hypertension. He is s/p right shoulder shoulder today and developed midsternal chest pain that radiates to left arm post operatively. Patient is on Coumadin and Plavix, which have been stopped x 10 days prior to surgery. After developing chest pain, cardiology was consulted, and patient was transferred to inpatient telemonitoring. His initial troponin was negative. Cardiology: Chest pain, resolved Troponins negative x 3 On ASA Lipid panel reviewed, started on lipitor Chest xray reviewed Echo reviewed Arterosclerotic heart disease with multiple cardiac stents On ASA, Plavix, Coumadin INR 1.07 Lovenox BID with bridge to coumadin (goal inr 2-3) INR in a.m., may need to self inject at home which pt states he as done prior Hypertension, controlled On Metoprolol 100mg daily Endocrine: Diabetes Mellitus, new diagnosis Hmga1c 8.7 Novolog SS based on BGMs, Levemir 15units at bedtime Endocrinology consulted, pt to follow outpatient Ortho Right shoulder pain, unstable distal clavicle s/p surgical repair/arthoscopy/ligament reconstruction Pain management F.E.N. Fluids: tolerating PO Electrolytes: monitor daily Nutrition: diabetic diet Prophy: DVT: Lovenox to Coumadin GI: Protonix Disposition: full code Visit type - Emergency Visit Emergency Visit: Yes ED Registration Date: 10/24/17 Care time: The patient presented to the Emergency Department on the above date and was hospitalized for further evaluation of their emergent condition. - New Patient This patient is new to me today: No - Critical Care Critical Care patient: No - Discharge Referral Referred to [facility] Med P.C.: No
[2017-10-25] MEDS ORDERED: ATORVASTATIN CA 20 MG TABLET (FP) PO SCH (22:00)
[2017-10-25] MEDS ORDERED: Insulin (LOG) Aspart 100 UNITS/ML VIAL SQ SCH (22:00)
[2017-10-25] MEDS ORDERED: INSULIN SLIDING SCALE (NOVOLOG) 1 VIAL SQ SCH (22:00)
[2017-10-25] MEDS ORDERED: INSULIN (LEVEMIR) 100 UNITS/ML UNITS SQ SCH (22:00)
[2017-10-26] MEDS: oxyCODONE HCL 5 MG TABLET PO PRN (03:57)
[2017-10-26] MEDS ORDERED: INSULIN SLIDING SCALE (NOVOLOG) 1 VIAL SQ SCH ×2 (07:00)
[2017-10-26 08:11] LABS: INR 1.3 (0.82-1.09); PROTHROMBIN TIME (PATIENT) 14.7 SEC (9.7-13.0)
[2017-10-26 08:20] VITALS: BP 122/74; PULSE 74; TEMP 98.1
[2017-10-26] MEDS: ENOXAPARIN NA (PORCINE) 120 MG/0.8 ML DISP.SYRIN SQ SCH (09:02)
[2017-10-26] MEDS: ASPIRIN COATED 81 MG TABLET.EC PO SCH (09:03)
[2017-10-26] MEDS: NICOTINE 21 MG/24 HOURS TOPICAL PATCH TD SCH (09:03)
[2017-10-26] MEDS: PANTOPRAZOLE 40 MG TABLET (FP) PO SCH (09:03)
[2017-10-26] MEDS: CLOPIDOGREL BISULFATE 75 MG TABLET (FP) PO SCH (09:03)
[2017-10-26] MEDS: clonazePAM 0.5 MG TABLET PO PRN (09:03)
--- NOTE | 2017-10-26 09:15 | PN ---
Progress Note (short form) - Note Progress Note: In bed in NAD Rt shoulder pain Blood sugar improving Vital Signs Period Temp Pulse Resp BP Sys/Torres Pulse Ox Last 24 Hr 98 F-98.3 F 64-74 20-24 122-145/63-83 PE:AOx3 NecK: supple No JVD HEENT: PERRL, EOMI Lungs: CTA CVS: S1S2 Abd: Benign Ext: No edema, Rt shoulder dressing Neuro: No focal deficit CMP Sodium 137 mmol/L (136-145) 10/25/17 06:00 Potassium 4.2 mmol/L (3.5-5.1) 10/25/17 06:00 Chloride 102 mmol/L (98-107) 10/25/17 06:00 Carbon Dioxide 26 mmol/L (21-32) 10/25/17 06:00 Anion Gap 9 (8-16) 10/25/17 06:00 BUN 16 mg/dL (7-18) D 10/25/17 06:00 Creatinine 1.0 mg/dL (0.7-1.3) 10/25/17 06:00 Creat Clearance w eGFR > 60 (>60) 10/25/17 06:00 POC Glucometer 159 UNITS (80-120) 10/26/17 05:40 Random Glucose 232 mg/dL (74-106) H 10/25/17 06:00 Hemoglobin A1c % 8.7 % (4.8-6.0) H 10/25/17 06:00 Calcium 8.6 mg/dL (8.5-10.1) 10/25/17 06:00 Magnesium 1.7 mg/dL (1.8-2.4) L 10/25/17 06:00 Total Bilirubin 0.4 mg/dL (0.2-1.0) D 10/25/17 06:00 AST 70 U/L (15-37) H D 10/25/17 06:00 ALT 74 U/L (12-78) 10/25/17 06:00 Alkaline Phosphatase 92 U/L (45-117) 10/25/17 06:00 Creatine Kinase 352 IU/L (39-308) H 10/25/17 06:00 Creatine Kinase Index 0.9 % (0.0-5.0) 10/25/17 06:00 CK-MB (CK-2) 3.42 ng/mL (0.5-3.6) 10/25/17 06:00 Troponin I < 0.02 ng/ml (0.00-0.05) 10/25/17 06:00 Total Protein 7.1 g/dl (6.4-8.2) D 10/25/17 06:00 Albumin 3.4 g/dl (3.4-5.0) 10/25/17 06:00 Triglycerides 217 mg/dL (35-160) H 10/25/17 06:00 Cholesterol 188 mg/dL (50-200) 10/25/17 06:00 Total LDL Cholesterol 119 mg/dL (5-100) H 10/25/17 06:00 HDL Cholesterol 45 mg/dL (40-60) 10/25/17 06:00 Current Medications Generic Name Dose Route Start Last Admin Trade Name Freq PRN Reason Stop Dose Admin Aspirin 81 mg 10/25/17 10:00 10/26/17 09:03 Ecotrin - PO 81 mg DAILY [facility] Administration Atorvastatin Calcium 20 mg 10/25/17 22:00 10/25/17 21:35 Lipitor - PO 20 mg HS [facility] Administration Clonazepam 0.5 mg 10/25/17 13:01 10/26/17 09:03 Klonopin - PO 0.5 mg TID PRN Administration ANXIETY Clopidogrel Bisulfate 75 mg 10/24/17 17:45 10/26/17 09:03 Plavix - PO 75 mg DAILY [facility] Administration Enoxaparin Sodium 120 mg 10/24/17 22:00 10/26/17 09:02 Lovenox - SQ 120 mg BID [facility] Administration Fentanyl 50 mcg 10/24/17 15:02 Sublimaze Injection - IVPUSH [id number] PRN PAIN-PACU ORDER X 4 DOSES ONLY Lactated Ringer's 1,000 mls @ 125 mls/hr 10/24/17 15:15 10/25/17 17:50 Lactated Ringers Solution IV Not Given ASDIR [facility] Insulin Aspart 1 vial 10/25/17 22:00 10/25/17 21:36 Novolog Vial Sliding Scale - SQ 2 units HS [facility] Administration Protocol Insulin Aspart 1 vial 10/26/17 07:00 10/26/17 06:26 Novolog Vial Sliding Scale - SQ 4 units TIDAC [facility] Administration Protocol Insulin Detemir 15 units 10/25/17 22:00 10/25/17 21:36 Levemir Vial SQ 15 units HS [facility] Administration Metoprolol Succinate 100 mg 10/24/17 17:45 10/26/17 09:03 Toprol Xl - PO 100 mg DAILY [facility] Administration Nicotine 21 mg 10/25/17 13:15 10/26/17 09:03 Nicoderm Patch - TD 21 mg DAILY [facility] Administration Nitroglycerin 0.4 mg 10/24/17 15:04 Nitrostat - SL Q5M PRN FOR CHEST PAIN Ondansetron HCl 4 mg 10/24/17 15:02 10/26/17 09:03 Zofran Injection IVPUSH 4 mg Q6H PRN Administration NAUSEA AND/OR VOMITING Oxycodone HCl 10 mg 10/25/17 14:52 10/26/17 03:57 Roxicodone - PO 10 mg Q6H PRN Administration PAIN LEVEL 6-10 Pantoprazole Sodium 40 mg 10/25/17 10:00 10/26/17 09:03 Protonix - PO 40 mg DAILY [facility] Administration Warfarin Sodium 10 mg 10/25/17 18:00 10/25/17 17:46 Coumadin - PO 10 mg DAILY@1800 [facility] Administration AP: A/P Rt shoulder surgery New Onset DM Lupus anticoagulant ASHD Diet exercise discussed No Juice and regular sodas Levemir 15 units daily at HS Novolog SS coverage Teach pt to self monitor blood sugar and self injection of Insulin Nutrition consult Pt may go home on current Insulin regimen F/u in office next week. Will F/u
--- NOTE | 2017-10-26 09:57 | DS ---
Physical Exam: SUBJECTIVE: Patient seen and examined. denies chest pain, denies shortness of breath. OBJECTIVE: Follow up INR check with is primary MD on October 29 at 10:30 a.[address] Patient to see Dr. Zavala next weeks patient to selft inject Lovenox twice per day and continue Coumadin 5mg which he has at home. Vital Signs Period Temp Pulse Resp BP Sys/Torres Pulse Ox Last 24 Hr 98 F-98.3 F 64-74 20-24 122-145/63-83 PHYSICAL EXAM GENERAL: Awake, alert, and fully oriented, in no acute distress. HEAD: Normal with no signs of trauma. EYES: Pupils equal, round and reactive to light, extraocular movements intact, sclera anicteric, conjunctiva clear. No lid lag. EARS, NOSE, THROAT: Ears normal, nares patent, oropharynx clear without exudates. Moist mucous membranes. NECK: Normal range of motion, supple without lymphadenopathy, JVD, or masses. LUNGS: Breath sounds equal, clear to auscultation bilaterally. No wheezes, and no crackles. No accessory muscle use. HEART: Regular rate and rhythm ABDOMEN: Soft, nontender, not distended, normoactive bowel sounds, no guarding, no rebound, no masses. No hepatomegaly or splenomegaly. MUSCULOSKELETAL: s/p right arm surgical repair NEUROLOGICAL: Cranial nerves II-XII intact. Normal speech. Normal gait. PSYCHIATRIC: Cooperative. Good eye contact. Appropriate mood and affect. SKIN: Warm, dry, normal turgor, no rashes or lesions noted. LABS Laboratory Results - last 24 hr 10/24/17 10/25/17 10/25/17 22:30 06:00 11:39 PT with INR INR POC Glucometer 249 Creatine Kinase 326 H Creatine Kinase Index 0.4 0.9 CK-MB (CK-2) 1.584 3.42 Troponin I < 0.02 10/25/17 10/25/17 10/26/17 16:21 21:30 05:18 PT with INR 14.70 H INR 1.30 H POC Glucometer 319 225 Creatine Kinase Creatine Kinase Index CK-MB (CK-2) Troponin I 10/26/17 05:40 PT with INR INR POC Glucometer 159 Creatine Kinase Creatine Kinase Index CK-MB (CK-2) Troponin I HOSPITAL COURSE: Date of Admission:10/24/17 Date of Discharge: 10/26/17 Patient is a 52 year old male with a significant past medical history of arterosclerotic heart disease with multiple cardiac stents, lupus anticoagulant , hyperlipidemia and hypertension. He is s/p right shoulder shoulder today and developed midsternal chest pain that radiates to left arm post operatively. Patient is on Coumadin and Plavix, which have been stopped x 10 days prior to surgery. After developing chest pain, cardiology was consulted, and patient was transferred to inpatient telemonitoring. His troponins are negative, and has been cleared by cardiology for discharge. Cardiology: Chest pain, resolved Troponins negative x 3 On ASA Lipid panel reviewed, started on lipitor Chest xray reviewed Echo reviewed Arterosclerotic heart disease with multiple cardiac stents On ASA, Plavix, Coumadin INR 1.30 Lovenox BID with bridge to coumadin (goal inr 2-3), pt to admiinster at home Hypertension, controlled On Metoprolol 100mg daily Endocrine: Diabetes Mellitus, new diagnosis Hmga1c 8.7 Novolog SS based on BGMs, Levemir 15units at bedtime Endocrinology consulted, pt to follow outpatient Patient taught how to self inject insulin, how to monitor blood sugars and signs/symptoms of hypoglycemia SS to be used - provided in discharge instructions Ortho Right shoulder pain, unstable distal clavicle s/p surgical repair/arthoscopy/ligament reconstruction Pain management Disposition: full code Minutes to complete discharge: 60 Discharge Summary Reason For Visit: RIGHT SHOULDER LABRAL TEAR, CLAVICLE INSTABILITY Current Active Problems Diabetes (Acute) H/O heart artery stent (Acute) HTN (hypertension) (Acute) Lupus anticoagulant disorder (Acute) Status post right shoulder hemiarthroplasty (Acute) Condition: Good - Instructions Diet, Activity, Other Instructions: Post -op Instruction Sheet - Shoulder Surgery - Sling/Immobilizer : You have been placed in a sling or shoulder immobilizer. As long as you are wearing this, your shoulder is well protected. You may come out of the sling to dress , or do exercises as directed. You may bend and straighten the elbow, and move your wrist and fingers, but DO NOT use your own muscles to move your elbow away from your side until directed to do so. Please sleep with the sling on. You may find it more comfortable to sleep with a small pillow behind your elbow, or in a recliner. To wash your armpit, you may lean slightly forward and let your arm dangle slightly away from your side and wash with a washcloth. - Use an ice bag/pack on the shoulder for 15 minutes every 2 hours. - Pain medication was sent to your Pharmacy. - Keep your dressing clean and dry. Please call the office to make an appointment for 1 week after surgery. Your dressing will be removed at that time. - No Lifting. - Starting 1-2 days after surgery, you may take your arm out of the sling 3 times a day to bend and straighten your elbow and wrist to prevent stiffness. If only an arthroscopy was performed and NO repairs, you may move your shoulder as tolerated. If a rotator cuff/labral repair was performed, DO NOT move your shoulder until instructed by surgeon. - Please call the office at [phone] if there are any questions or concerns. Please monitor your blood glucose using a glucometer. Test your blood sugar before meals and use the following sliding scale If your blood sugar is: Take this much Novolog 101-150 0 151-200 4 201-250 6 251-300 8 301-350 10 351-400 12 over 400 12 Please monitor your blood glucose using a glucometer. Test your blood sugar BEFORE BEDTIME and use the following sliding scale Blood sugar Dose to be administered 101-150 0 151-200 0 201-250 2 251-300 4 301-350 6 351-400 8 over 400 please notify your health care provider At night we recommend that you inject Levemir 15 units before bedtime. Levemir is a SLOW acting insulin that usually peaks in 8 hours. Therefore, if your blood sugar is 100 or below at bedtime, do not take the Levemir. Since this is the first time you are doing this, please keep a log of your blood sugars and bring into your physican's office. Please call me with any questions that you may have. Shawna Zamorano NP [facility] @ [facility] [phone] Referrals: ON STAFF,NOT [Non Staff, Medical] - (Dr. Brad Baker appt for follow up INR follow up on SundayOctober 29 at 10:30) Reyes Forman MD [Staff Physician] - Disposition: HOME - Home Medications Comprehensive Discharge Medication List: Ambulatory Orders Aspirin Coated [Ecotrin -] 81 mg PO DAILY 10/23/17 Atorvastatin Ca [Lipitor] 20 mg PO DAILY 10/23/17 Clopidogrel Bisulfate [Plavix] 75 mg PO DAILY 10/23/17 HYDROmorphone [Dilaudid -] 4 mg PO Q4H 10/23/17 Metoprolol Succinate 100 mg PO DAILY 10/23/17 Montelukast Sodium [Singulair] 10 mg PO DAILY 10/23/17 Omeprazole 20 mg PO DAILY 10/23/17 Oxycodone HCl/Acetaminophen [Percocet 10-325 mg Tablet] 1 each PO PRN PRN Ramipril [Altace] 5 mg PO DAILY 10/23/17 Sertraline HCl [Zoloft -] 50 mg PO BID 10/23/17 Warfarin Sodium [Coumadin] 5 mg PO DAILY 10/23/17 clonazePAM [Klonopin -] 0.5 mg PO DAILY 10/23/17 Alcohol Antiseptic Pads [Alcohol Swabs] 1 each ACHS #1 box 10/25/17 Blood Sugar Diagnostic [Test Strips] 1 each ACHS #1 box 10/25/17 Enoxaparin [Lovenox -] 120 mg SQ BID #10 disp.syrin 10/25/17 Insulin (Novolog 70/30) [Novolog Mix 70/30 Flexpen -] 2 units SQ BIDAC #1 pen Insulin Detemir [Levemir Flextouch] 15 unit SQ HS #1 insuln.pen 10/25/17 Lancets [Lancets Ultra Thin] 1 each ACHS #1 box 10/25/17 Lancets [Lancets Ultra Thin] 1 each ACHS #1 box 10/25/17 Lancets [Lancets Ultra Thin] 1 each ACHS #1 box 10/25/17 Lancets [Lancets Ultra Thin] 1 each ACHS #1 box 10/25/17 Miscellaneous Medical Supply [Glucometer Device] 1 each SQ ASDIR #1 kit [employer] [Glucometer Device] 1 each SQ ASDIR #1 kit [employer] [Glucometer Device] 1 each SQ ASDIR #1 kit [employer] [Glucometer Device] 1 each SQ ASDIR #1 kit [employer] [Glucometer Test Strips #100] 1 each SQ ASDIR #1 box 10/25/17 Miscellaneous [employer] [Glucometer Test Strips #100] 1 each SQ ASDIR #1 box 10/25/17 Miscellaneous [employer] [Glucometer Test Strips #100] 1 each SQ ASDIR #1 box 10/25/17 Pen Needle, Diabetic, Safety [Healthy Accents Unifine Pentip] 1 each ACHS #1 box 10/25/17 This patient is new to me today: No Emergency Visit: Yes ED Registration Date: 10/24/17 Care time: The patient presented to the Emergency Department on the above date and was hospitalized for further evaluation of their emergent condition. Critical Care patient: No - Discharge Referral Referred to [facility] Med P.C.: No
--- NOTE | 2017-10-26 11:05 | PN ---
Progress Note (short form) - Note Progress Note: Ortho Pt seen and examined s/p right shoulder AC joint reconstruction pod #2- feeling better Selected Entries 10/26/17 08:19 Temperature 98.1 F Pulse Rate 74 Respiratory 24 Rate Blood Pressure 122/74 dressing c/d/i, good rom of elbow, wrist and hand nvi a/p continue immobilization rom for elbow,wrist and hand ok to d/c from ortho once med/cardio cleared f/u in the office next week
--- NOTE | 2017-10-26 11:58 | PN ---
Progress Note, Physician History of Present Illness: 52 yo man who developed CP after right shoulder surgery. 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 Medical records are not available. ASHD - mi/"dammaged heart" multiple stents Lupus anticoagulant hlp htn patient stopped his coumadin and DAPT 10 days - Objective Vital Signs: Vital Signs Temperature 98.1 F 10/26/17 08:19 Pulse Rate 74 10/26/17 08:19 Respiratory Rate 24 10/26/17 09:00 Blood Pressure 122/74 10/26/17 08:19 O2 Sat by Pulse Oximetry (%) 96 10/24/17 17:15 Eyes: Yes: WNL, Conjunctiva Clear, EOM Intact HENT: Yes: WNL, Atraumatic, Normocephalic Neck: Yes: WNL, Supple, Trachea Midline Cardiovascular: Yes: WNL, Regular Rate and Rhythm Respiratory: Yes: WNL, Regular, CTA Bilaterally Gastrointestinal: Yes: WNL, Normal Bowel Sounds Genitourinary: Yes: WNL Musculoskeletal: Yes: WNL Extremities: Yes: WNL Edema: No Integumentary: Yes: WNL Neurological: Yes: WNL, Alert, Oriented ...Motor Strength: WNL Psychiatric: Yes: WNL Labs: CBC, BMP 10/25/17 06:00 10/25/17 06:00 INR, PTT INR 1.30 (0.82-1.09) H 10/26/17 05:18 Assessment/Plan - Problems (1) Lupus anticoagulant disorder Assessment/Plan: on dual antiplatelet therapy. On Lovenox as outp until INR 2-3 on warfarin. Code(s): D68.62 - LUPUS ANTICOAGULANT SYNDROME (2) HTN (hypertension) Code(s): I10 - ESSENTIAL (PRIMARY) HYPERTENSION (3) Status post right shoulder hemiarthroplasty Assessment/Plan: POD 1; pain managemetn per surgeon. Code(s): Z96.611 - PRESENCE OF RIGHT ARTIFICIAL SHOULDER JOINT (4) H/O heart artery stent Assessment/Plan: aggtressive lipid control with statin, diet, exercise. On DAPT; on warfarin. mibi st with primary hotel recreational facilities manager as outp. Code(s): Z95.5 - PRESENCE OF CORONARY ANGIOPLASTY IMPLANT AND GRAFT (5) Diabetes Assessment/Plan: consider ACEI for renal protection. Code(s): E11.9 - TYPE 2 DIABETES MELLITUS WITHOUT COMPLICATIONS
== END 2017-10-26 11:30 | disposition home or self-care (01) | DRG 464 ==
LOC: JASU-SURG 06:50 → JSAMEDAYSX 15:52 → J4W 17:48
PROVIDERS: ADMIT Internal Medicine Cardiovascular Disease; ATTEND Orthopaedic Surgery
PROC: 0MB14ZZ Excision of Right Shoulder Bursa and Ligament, Percutaneous Endoscopic Approach (ICD-10-PCS; 2017-10-24)
PROC: 0RU Upper Joints, Supplement (ICD-10-PCS; 2017-10-24)
PROC: 0RNJ4ZZ Release Right Shoulder Joint, Percutaneous Endoscopic Approach (ICD-10-PCS; 2017-10-24)
PROC: 0RJJ4ZZ Inspection of Right Shoulder Joint, Percutaneous Endoscopic Approach (ICD-10-PCS; 2017-10-24)
PROC: 0PR Upper Bones, Replacement (ICD-10-PCS; 2017-10-24)
PROC: 0MQ Bursae and Ligaments, Repair (ICD-10-PCS; 2017-10-24)
PROC: 0MB10ZZ Excision of Right Shoulder Bursa and Ligament, Open Approach (ICD-10-PCS; 2017-10-24)
PROC: 0KB50ZZ Excision of Right Shoulder Muscle, Open Approach (ICD-10-PCS; 2017-10-24)
PROC: 0PB90ZZ Excision of Right Clavicle, Open Approach (ICD-10-PCS; 2017-10-24)
PROC: 0JBD0ZZ Excision of Right Upper Arm Subcutaneous Tissue and Fascia, Open Approach (ICD-10-PCS; principal; 2017-10-24 09:00)
DX: M75.41 Impingement syndrome of right shoulder (principal); D68.62 Lupus anticoagulant syndrome; M25.311 Other instability, right shoulder; I25.10 Atherosclerotic heart disease of native coronary artery without angina pectoris; I10 Essential (primary) hypertension; G89.18 Other acute postprocedural pain; R07.9 Chest pain, unspecified; E78.5 Hyperlipidemia, unspecified; F17.210 Nicotine dependence, cigarettes, uncomplicated; E11.9 Type 2 diabetes mellitus without complications
CPT/HCPCS: 36415; 71045-TC-FY; 80053; 80061; 82550; 82553; 82962; 83036; 83721; 83735; 84484; 85025; 85610; 88304-TC; 93005; 93010; 93306-TC; 94010; 94760; J1644